=== PATIENT | male | born 1995 | race African-American/Black ===

== ENCOUNTER 2021-01-26 02:27 | Emergency (ER) | payer MEDICAID ==
[~2021-01-26] VITALS: Ht 180.3 cm; Wt 118.0 kg
[2021-01-26 02:59] LABS: BASOPHILS % 1.1 % (0.0-2.0); EOSINOPHILS % 0.6 % (0.0-5.0); HEMATOCRIT. 42.1 % (42.0-52.0); MEAN CORPUSCULAR HEMOGLOBIN 27.6 pg (28.0-32.0); MEAN CORPUSCULAR VOLUME 83.4 fL (80.0-94.0); MEAN PLATELET VOLUME 7.7 fl (7.4-10.4); MONOCYTES % 6.5 % (2.0-8.0); NEUTROPHILS % 37.8 % (40.0-76.0); PLATELET 355 x1000/uL (130-400); RED BLOOD CELL COUNT 5.05 mill/uL (4.7-6.1)
[2021-01-26 03:04] LABS: CHLORIDE 106 mEq/L (98-107)
[2021-01-26] MEDS ORDERED: IOHEXOL-300 100 ML BOTTLE ONE (03:38)
[2021-01-26] MEDS ORDERED: CEFAZOLIN 1000MG PREMIX 50 ML IV ONE (05:30)
[2021-01-26] MEDS ORDERED: SODIUM CHLORIDE 0.9% 1,000 ML IV ONE (05:45)
[2021-01-26] MEDS ORDERED: KETOROLAC 30MG/ML VIAL IV ONE (07:00)
[2021-01-26] MEDS ORDERED: IBUP-2030 MT (07:15)
[2021-01-26] MEDS ORDERED: CEPH500C2 MT (07:16)
[2021-01-26 08:00] LABS: CLARITY URINE CLEAR (CLEAR); COLOR URINE YELLOW (YELLOW); KETONES URINE NEGATIVE (NEGATIVE); LEUKOCYTE ESTERASE URINE NEGATIVE (NEGATIVE); NITRITE URINE NEGATIVE (NEGATIVE); OCCULT BLOOD URINE NEGATIVE (NEGATIVE); PROTEIN URINE NEGATIVE (NEGATIVE); UROBILINOGEN URINE 0.2 E.U./dL (0.2-1.0)
[2021-01-26 08:06] LABS: SPECIFIC GRAVITY URINE 1.049 (1.005-1.030)
[2021-01-26 08:14] VITALS: BP 142/81
== END 2021-01-26 10:27 | disposition home or self-care (01) ==
LOC: ER 02:27 → EDBD 02:27 → ER 10:27
DX: S31.139A Puncture wound of abdominal wall without foreign body, unspecified quadrant without penetration into peritoneal cavity, initial encounter (principal); I49.9 Cardiac arrhythmia, unspecified; Z88.6 Allergy status to analgesic agent; Z88.5 Allergy status to narcotic agent; W34.00XA Accidental discharge from unspecified firearms or gun, initial encounter; Y93.89 Activity, other specified; Y92.89 Other specified places as the place of occurrence of the external cause; Y99.8 Other external cause status
CPT/HCPCS: 36415; 74177; 80053; 81003; 85025; 93005; 96365; 96375; 99285; A4217; J0690; J1885; J7030; Q9967; Z7610